=== PATIENT | male | born 1960 | race Caucasian/White ===

== ENCOUNTER 2024-04-17 07:13 | Emergency (ER) | payer BC, SELFPAY ==
[2024-04-17 07:14] VITALS: BP 159/89
--- NOTE | 2024-04-17 07:38 | ED.GENMED ---
History of Present Illness
General
Chief Complaint: Abdominal Pain
Time Seen by Provider: 04/17/24 07:25
History of Present Illness
History of Present Illness:
63-year-old male with history of hypertension and hyperlipidemia presents to the emergency department for evaluation of suprapubic/left lower quadrant abdominal pain over the past 24 to 48 hours. He reports having brief episode of hematuria earlier
in the week and felt as though he was passing a kidney stone. Has had gradual worsening abdominal pain and chills overnight. No objective fever. Did vomit before coming to the ER. No prior history of abdominal surgeries. No chest pain or
shortness of breath. Hematuria and lower urinary tract voiding symptoms have since resolved.
Past History
Past History
ED Past Medical History: HTN, Hypercholesterolemia and Other (Kidney stones)
ED Past Surgical History: Orthopedic (Left biceps surgery, bilateral MCL repair)
Social History
Tobacco: Non-smoker
Alcohol: Occasional
Drug: None
Personal:
Living: with family
Employment: Employed
Family History
Family History: CAD
Review of Systems
Review of Systems
Allergies reviewed?: Yes
All Other Systems: ROS reviewed and negative except as documented in HPI and ROS
Phy Exam
Physical Exam
Physical Exam:
GEN: Well appearing, NAD, WDWN
HEENT: Oral mucosa moist, no scleral icterus
Cardiac: Regular rate and rhythm, no murmurs
Lung: No respiratory distress, no tachypnea, lungs clear to auscultation bilaterally
Abdomen: Soft, mild left lower quadrant tenderness, no CVA tenderness, no rigidity
MSK: No gross deformity or injuries
Skin: Good color, no pallor or jaundice, no rashes
Neuro: AO x3, moves all extremities freely
Psych: Calm, cooperative
Course
Orders/Labs/Results
Orders:
Orders
04/17/24 07:38
CT Abd/Pel (IV only)-DH only Urgent
Comment:
Reason For Exam: LLQ pain
Ketorolac [Toradol] 15 mg IV NOW STA
04/17/24 07:40
Complete Blood Count/With Diff Urgent
Comprehensive Metabolic Panel Urgent
Urinalysis Reflex To Culture Urgent
Date Specimen was Collected: 04/17/24
Time Specimen was Collected: 07:16
Urine Microscopic Reflex Cult Urgent
04/17/24 10:24
CefTRIAXone [Rocephin] 1,000 mg IV NOW STA
Abnormal Lab Results
04/17/24
07:40
WBC 13.2 H 10^3/uL
(4.8-10.8)
Absolute Neuts (auto) 11.9 H 10^3/uL
(1.4-6.5)
Absolute Lymphs (auto) 0.4 L 10^3/uL
(1.2-3.4)
Absolute Monos (auto) 0.7 H 10^3/uL
(0.1-0.6)
Neutrophils % 90.1 H %
(42.2-75.2)
Lymphocytes % 3.3 L %
(20.5-51.1)
Carbon Dioxide 31 H mmol/L
(22-30)
Glucose 128 H mg/dl
(70-99)
Ur Occult Blood Reflex 4+ A
(Negative)
Leukocyte Esterase Rfl Trace A
(Negative)
Urine RBC 26-30 A /HPF
(0-2)
04/17/24 07:40
04/17/24 07:40
Vital Signs
Initial and Last Documented VS:
Initial Vital Signs
Temp Pulse Resp BP Pulse Ox
97.3 F 67 18 159/89 97
04/17/24 07:14 04/17/24 07:14 04/17/24 07:14 04/17/24 07:14 04/17/24 07:14
Last Documented Vital Signs
Temp Pulse Resp BP Pulse Ox
97.3 F 66 18 155/85 98
04/17/24 07:14 04/17/24 10:30 04/17/24 10:30 04/17/24 10:30 04/17/24 10:30
MDM/Problems Addressed
MDM/Problems Addressed:
Imaging is unremarkable. Given the suprapubic abdominal discomfort and hematuria I suspect an acute UTI, will treat with cephalosporins, suitable for outpatient management
*Critical Care Note
Total Time (30-74mins, 75-104mins- exclusive of procedures): Not Applicable
ED Attending Note
-
Portions of this chart may have been created with voice recognition software.� Occasional wrong word or��sound alike� substitutions may have occurred due to the inherent limitations of voice recognition software.
Discharge Plan
Departure
Patient Disposition: Home (Routine Discharge)
Date of Disposition: 04/17/24
Time of Disposition: 10:25
Patient with high blood pressure during this ER visit?: No
Discharge Problem:
Urinary tract infection
Instructions: Urinary tract infection in adults - ED discharge instructions
Prescriptions:
New
cefdinir 300 mg capsule
300 mg PO Q12H Qty: 10 0RF
ondansetron 4 mg tablet,disintegrating
4 mg PO TIDPRN PRN (Reason: nausea/vomiting) Qty: 10 0RF
No Action
amoxicillin-pot clavulanate 875-125 mg tablet
1 tab PO BID Qty: 14 0RF
Referrals:
Chapo Valles DO [Family Provider] -
Interventions
Interventions:
*Risk Screen - Suicide Last Done: 04/17/24 07:14
*General Assessment Last Done: 04/17/24 07:14
*Neglect/Abuse Screening Last Done: 04/17/24 07:14
ED- Fall Risk Assessment Last Done: 04/17/24 07:45
*ED COVID-19 Vaccine History Last Done: 04/17/24 07:14
*Nursing Disposition Last Done: 04/17/24 10:54
DJ-Ftxqig-Auonhdqnmq Assessment Last Done: 04/17/24 07:45
Discharge Date and Time
Discharge Date/Time: 04/17/24 10:45
Print Language: CYPRIOT
[2024-04-17 07:45] VITALS: BMI 37.8
[2024-04-17] MEDS: TORADOL 15 MG IV (07:52)
[2024-04-17 08:01] LABS: % Basophils 0.2 % (0-2); % Eosinophils 0.5 % (0-6); % Immature Granulocytes 0.3 % (0-0.5); % Lymphocytes 3.3 % (20.5-51.1); % Monocytes 5.6 % (1.7-9.3); % Neutrophils 90.1 % (42.2-75.2); Absolute Eosinophils 0.1 10^3/uL (0-0.7); Absolute Lymphocytes 0.4 10^3/uL (1.2-3.4); Absolute Monocytes 0.7 10^3/uL (0.1-0.6); Absolute Neutrophils 11.9 10^3/uL (1.4-6.5); Hematocrit 45.5 % (39.0-52.0); Hemoglobin 15.1 g/dL (13.0-18.0); Mean Corp Hgb Conc. 33.2 g/dL (33.0-37.0); Mean Corpuscular Hgb 28.9 pg (27.0-31.0); Mean Corpuscular Volume 87.2 fL (80.0-94.0); Mean Platelet Volume 9.7 fL (7.4-10.4); Nucleated Red Blood Cells % 0 % (-); Platelet Count 205 10^3/uL (130-400); Red Blood Cell Count 5.22 10^6/uL (4.70-6.10); Red Cell Dist. Width 13.2 % (11.5-14.5); White Blood Cell Count 13.2 10^3/uL (4.8-10.8)
[2024-04-17 08:10] LABS: Urine Albumin Trace (Neg - Trace); Urine Bilirubin Negative (Negative); Urine Character Clear (Clear); Urine Color Yellow; Urine Glucose Negative (Negative); Urine Ketone Negative (Negative); Urine Leukocyte Trace (Negative); Urine Nitrite Negative (Negative); Urine Occult Blood 4+ (Negative); Urine Specific Gravity 1.025 (<1.030); Urine Urobilinogen Negative (Neg - 1+)
[2024-04-17 08:14] LABS: ALT (SGPT) 42 U/L (0-50); AST (SGOT) 30 U/L (17-59); Albumin 4.4 g/dl (3.5-5.0); Alkaline Phosphatase 83 U/L (38-126); Blood Urea Nitrogen 18 mg/dl (9-20); Calcium 9.2 mg/dl (8.4-10.2); Carbon Dioxide 31 mmol/L (22-30); Chloride 101 mmol/L (98-107); Estimated Creatinine Clearance > 125 ml/min; Glucose 128 mg/dl (70-99); Potassium 4.7 mmol/L (3.5-5.1); Sodium 137 mmol/L (135-145); Total Bilirubin 0.6 mg/dl (0.2-1.3); Total Protein 7.1 g/dl (6.3-8.2); eGFR > 60.00
[2024-04-17 09:29] LABS: Urine Amorphous Seen; Urine Mucus Many
[2024-04-17 09:30] LABS: Urine Red Blood Cell 26-30 /HPF (0-2)
[2024-04-17 09:32] LABS: Urine Hyaline Cast 0-2 /LPF (0-2)
[2024-04-17] MEDS: ROCEPHIN 1000 MG IV (10:28)
[2024-04-17 10:30] VITALS: BP 155/85
== END 2024-04-17 10:45 | disposition home or self-care (01) ==
LOC: EMR 07:13
PROVIDERS: EMERGENCY PHYSICIAN Emergency Medicine; FAMILY PHYSICIAN Family Medicine
DX: N39.0 Urinary tract infection, site not specified (principal); R31.9 Hematuria, unspecified; I10 Essential (primary) hypertension; E78.00 Pure hypercholesterolemia, unspecified
CPT/HCPCS: 96374; 96375; 99284; 74177; 80053; 81003; 81015; 85025; Q9967